=== PATIENT | female | born 1975 | race Caucasian/White ===

== ENCOUNTER → 2019-12-29 23:02 | Outpatient (CLI) | payer MEDICAID ==
[2013-07-20 11:23] VITALS: BMI 25.8
[~2019-12-29 23:02] MED LIST: CYTOTEC200 MCG PO; HYDROCODON-ACE1 EAC7 PO; IBUPROFEN400 MG PO; MOTRIN600 MG PO; NORCO 10/325 TA1 TA1 PO; PRENATAL COMPLE1 TAB PO; PROMETRIUM200 MG PO; VALIUM5 MG PO
== END | disposition home or self-care (01) ==
LOC: D.MAMMO 13:15
PROVIDERS: ATTEND Nurse Practitioner Women's Health
DX: Z12.31 Encounter for screening mammogram for malignant neoplasm of breast (principal)